=== PATIENT | female | born 1965 | race Caucasian/White ===

== ENCOUNTER 2022-03-14 16:09 | Outpatient (REF) | payer MEDICAID, SELFPAY ==
[2022-03-14 18:35] LABS: HCT 43.3 % (36.0-46.0); HGB 14.3 g/dL (11.2-15.7); MCH 31.8 pg (27.0-33.0); MCV 96 fL (80-95); MPV 10.5 fL (8.0-11.0); Platelet Count 210 10^3/uL (130-400); RBC 4.49 10^6/uL (3.93-5.22); RDW 12.1 % (11.7-14.6); WBC 7.22 10^3/uL (4.4-10.8)
[2022-03-14 19:59] LABS: ALT 43 U/L (14-59); AST 22 U/L (15-37); Albumin 3.8 g/dL (3.4-5.0); Alkaline Phosphatase 93 U/L (46-116); Anion Gap 11.8 mmol/L (3-11); BUN 9 mg/dL (7-18); Bilirubin, Total 0.4 mg/dL (0.2-1.0); CO2 25.2 mmol/L (21.0-32.0); CREATININE 0.7 mg/dL (0.55-1.02); Calcium 8.7 mg/dL (8.5-10.1); Calculated LDL 143 mg/dL (<100); Chloride 104 mmol/L (98-107); Cholesterol 241 mg/dL (<200); Glucose 92 mg/dL (74-106); HDL Cholesterol 84 mg/dL (40-60); Potassium 3.8 mmol/L (3.5-5.1); Sodium 141 mmol/L (136-145); TSH (W/Ref FT4) 1.04 uIU/mL (0.36-3.74); Triglyceride 70 mg/dL (<150); Vitamin B12 490 pg/mL (193-986)
== END 2022-03-14 16:10 | disposition home or self-care (01) ==
LOC: NCHCN 16:09
PROVIDERS: Visit Provider Nurse Practitioner Family
DX: R20.2 Paresthesia of skin (principal); R03.0 Elevated blood-pressure reading, without diagnosis of hypertension; R79.89 Other specified abnormal findings of blood chemistry; E55.9 Vitamin D deficiency, unspecified; Z00.00 Encounter for general adult medical examination without abnormal findings
CPT/HCPCS: 80053; 80061; 82306; 85027; 82607; 83735; 84443

== ENCOUNTER → 2022-08-25 01:33 | Outpatient (CLI) | payer MEDICAID, SELFPAY ==
--- NOTE | 2022-08-25 09:45 | DI.MRI_ITS ---
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 COMPARISON: No exams were available for comparison FINDINGS: BONES: Vertebral body heights are maintained. Alignment is normal. Bone marrow signal intensity is wi thin normal limits. CERVICAL CORD: Craniovertebral junction is unremarkable. The cervical cord is normal size and signal intensity. SOFT TISSUES: Unremarkable. C2-3: No disc herniation or bulge is identified. No evidence of neural foraminal narrowing. No signi ficant central canal stenosis C3-4: No disc herniation or bulge is identified. No evidence of neural foraminal narrowing. No signif icant central canal stenosis C4-5: No disc herniation or bulge is identified. No evidence of neural foraminal narrowing. No signif icant central canal stenosis C5-6: Mild loss of disc height. Endplate osteophytes are seen projecting eccentric toward the left, causing neural foraminal narrowing. No significant central canal stenosis C6-7: Mild broad-based disc bulging eccentric toward the right. No evidence of neural foraminal narr owing. Mild effacement of the anterior CSF space. No significant central canal stenosis C7-T1: No disc herniation or bulge is identified. No evidence of neural foraminal narrowing. No signi ficant central canal stenosis IMPRESSION: Left neural foraminal narrowing at C5-6 secondary to left-sided disc osteophytes. Mild disc bulging eccentric toward the right at C 6 7. DATA REPOSITORY:
== END ==
PROVIDERS: Visit Provider Nurse Practitioner Family
DX: M50.222 Other cervical disc displacement at C5-C6 level (principal); M50.223 Other cervical disc displacement at C6-C7 level
CPT/HCPCS: 72141

== ENCOUNTER 2022-12-08 11:43 | Outpatient (REF) | payer MEDICAID, SELFPAY ==
[2022-12-08 16:18] LABS: ESR 26 mm/hr (0-30)
[2022-12-08 16:22] LABS: Abs Immature Grans 0.02 10^3/uL (0.0-0.06); Absolute Basophil Count 0.02 10^3/uL (0.0-0.2); Absolute Eosinophil Count 0.08 10^3/uL (0.0-0.7); Absolute Lymphocyte Count 1.66 10^3/uL (1.2-3.4); Absolute Monocyte Count 0.43 10^3/uL (0.1-0.8); Absolute Neutrophil Count 3.52 10^3/uL (1.2-6.7); Basophils % 0.3; Eosinophils % 1.4; HCT 43.7 % (36.0-46.0); HGB 14.6 g/dL (11.2-15.7); Immature Grans % 0.3; MCH 32.3 pg (27.0-33.0); MCHC 33.4 % (32.0-36.0); MCV 97 fL (80-95); MPV 10.7 fL (8.0-11.0); Monocytes % 7.5; Neutrophils % 61.5; Platelet Count 190 10^3/uL (130-400); RBC 4.52 10^6/uL (3.93-5.22); RDW 11.8 % (11.7-14.6); RDW-SD 42.2 fL; WBC 5.73 10^3/uL (4.4-10.8)
[2022-12-08 17:01] LABS: ALT 32 U/L (14-59); AST 17 U/L (15-37); Albumin 3.6 g/dL (3.4-5.0); Alkaline Phosphatase 84 U/L (46-116); Anion Gap 8.3 mmol/L (3-11); BUN 22 mg/dL (7-18); Bilirubin, Total 0.3 mg/dL (0.2-1.0); CO2 26.7 mmol/L (21.0-32.0); CREATININE 0.7 mg/dL (0.55-1.02); Chloride 104 mmol/L (98-107); Estimated GFR 101.44 (mL/min/1.73m2); Glucose 100 mg/dL (74-106); Potassium 4.4 mmol/L (3.5-5.1); Sodium 139 mmol/L (136-145); TSH (W/Ref FT4) 1.05 uIU/mL (0.36-3.74); Total Protein 7.1 g/dL (6.4-8.2); Vitamin B12 405 pg/mL (193-986)
[2022-12-08 17:16] LABS: Creatine Kinase 48 U/L (26-192)
[2022-12-08 17:55] LABS: Vitamin D 25 Total 12.1 ng/mL (30-100)
[2022-12-09 17:55] LABS: Rheumatoid Factor <8.6 IU/mL (<12.0)
[2022-12-10 09:25] LABS: Cyclic Citrullinated Peptide <2.5 U/mL (<5.0)
== END 2022-12-08 11:44 | disposition home or self-care (01) ==
LOC: NCHCN 11:43
PROVIDERS: PCP Nurse Practitioner Family; Visit Provider Family Medicine
DX: M25.561 Pain in right knee (principal); M25.562 Pain in left knee; R53.1 Weakness; M62.81 Muscle weakness (generalized); M79.18 Myalgia, other site; E55.9 Vitamin D deficiency, unspecified; R20.2 Paresthesia of skin
CPT/HCPCS: 80053; 82306; 82550; 85652; 86200; 82607; 84443; 85025; 86140; 86431

== ENCOUNTER 2023-02-03 00:40 | Outpatient (CLI) | payer MEDICAID, SELFPAY ==
--- NOTE | 2023-02-03 | DI.RAD_ITS ---
Exam(s) XR KNEE LT 3V AP,LAT,NICHELLE EXAM: XR KNEE LT 3V AP,LAT,NICHELLE CLINICAL HISTORY: LT KNEE PAIN, M25.569. TECHNIQUE: 2D digital imaging was performed of the left knee. Three images were obtained. AP, late ral and PA tunnel views were obtained. COMPARISON: No priors for comparison. FINDINGS: BONES: No acute fracture is present. No bony destructive lesion is seen. Enthesophytes are seen at t he anterior patella. JOINTS: Moderately severe degenerative changes are seen in the left knee characterized by joint space narrowing and periarticular spurring. The findings are most marked at the patellofemoral joint. No joint effusion is seen. SOFT TISSUE: Normal. IMPRESSION: Moderately severe osteoarthritis of the left knee. DATA REPOSITORY: RADIATION DOSE DELIVERED:
--- NOTE | 2023-02-03 | DI.RAD_ITS ---
Exam(s) XR KNEE RT 3V AP,LAT,NICHELLE EXAM: XR KNEE RT 3V AP,LAT,NICHELLE CLINICAL HISTORY: RT KNEE PAIN, M25.569. TECHNIQUE: 2D digital imaging was performed of the right knee. Three views obtained. AP, lateral an d PA tunnel views were obtained. COMPARISON: No exams were available for comparison FINDINGS: BONES: No acute fracture is present. No bony destructive lesion is seen. JOINTS: Moderate degenerative changes are seen in the right knee involving all 3 joint compartments c an characterized by joint space narrowing and periarticular spurring. There is a small joint effusio n. SOFT TISSUE: Normal. IMPRESSION: Moderate osteoarthritis of the knee. DATA REPOSITORY: RADIATION DOSE DELIVERED:
== END 2023-02-03 01:00 ==
PROVIDERS: PCP Nurse Practitioner Family; Visit Provider Family Medicine
DX: R60.0 Localized edema (principal); R53.1 Weakness
CPT/HCPCS: 73562

== ENCOUNTER 2023-03-26 15:44 | Outpatient (REF) | payer MEDICAID, SELFPAY ==
--- OUTSIDE RECORDS SUMMARY | 2023-03-26 15:46 | XMS_ITS | Continuity of Care Document ---
Author Name Unknown Organization [facility] Ambulatory Clinics Address [address] [place] [address] Care Team Providers Care Component Assembler Supervisor Name Role Phone OLLIE REBOLLAR Primary Care Physician [phone] Encounter [facility] NBR [id number] Date(s): 02/25/23 - 02/25/23 [facility] Ambulatory Clinics [address], [place] [address] Encounter Diagnosis Bilateral leg weakness(Discharge Diagnosis) - 02/25/23 Primary osteoarthritis of knees, bilateral(Discharge Diagnosis) - 02/25/23 Discharge Disposition: Home or Self Care Attending Physician: Shilpi Dominguez APRN Allergies, Adverse Reactions, Alerts No Known Medication Allergies Assessment and Plan Future Scheduled Tests Radiology* XR Knee Complete 4+ Views Left 01/30/23 Functional Status 02/25/23 Other exposure to Infectious Disease Non e Medications buPROPion 150 mg/12 hours (SR) oral tablet, extended release 150 mg = 1 tab, Oral, BID, # 60 tab, 0 Refill(s) Start Date: 02/03/23 Status: Ordered ibuprofen 200 mg oral tablet 400 mg = 2 tab, Oral, every 4 hr, PRN as needed for pain, # 120 tab, 0 Refill(s) Start Date: 02/04/23 Status: Ordered Vitamin D3 2000 intl units oral capsule 50 mcg 1 cap, Oral, Daily, # 60 cap, 0 Refill(s) Start Date: 02/03/23 Status: Ordered Problem List Condition Confirmation Course Effective Dates Status H ealth Status Informant Anxiety Confirmed Active Myelopathy, cervical spine Confirmed Active Congenital genu valgus Confirmed Active Lower extremity edema Confirmed Active Elevated blood pressure reading with diagnosis of hypertension Confirmed Active Osteoarthritis of knee Confirmed Active Bilateral leg weakness Confirmed Active Venous stasis dermatitis Confirmed Active Venous insufficiency Confirmed Active Vitamin D deficiency Confirmed Active Vital Signs Most recent to oldest [Reference Range]: 1 Peripheral Pulse Rate [60-100 bpm] 78 bp m (02/25/23 12:24 PM) Blood Pressure [90-140/60-90 mmHg] 158/8 2mmHg *HI* (02/25/23 12:24 PM) Social History Social History Type Response Tobacco Former tobacco user Tobacco Use:. Sex Female Physician Outpatient Note * Shilpi Dominguez APRN: PERFORM Event Display: Office Clinic Note Physician Authored Date: [id number] SASHA MOLINA Y :1965 Age:57 years Sex:Female Visit Date:02/25/2023 Primary Care Physician: OLLIE REBOLLAR Chief Complaint Bilateral Knee pain ( Monovsic injections) History of Present Illness ? Sasha??is here today for Monovisc injection of bilateral knees, we are trying to treat??her knee arthritis conservatively.?? She has vascular issue as well??as??spinal fusion,??trying to??treat the knee osteoarthritis of her knees to see if she gets improvement??in overall movement and abilityto move about.?? She has never had viscosupplementation in the past, we were able to get approval she is here today to be considered for that. ?? From last visit on 02/04/2023: Chief complaint:??Bilateral knee pain ?? Cause: progressive over time,??just got insurance so seeking care, of note??in ??2009 [facility] spine-fusion instrumented-affected both legs-did great and was painfree. ?? Treatment: tried Mobic and was not helpful, also did physical therapy with aqua therapy also- was very painful ?? Symptoms: right worse than left, knees give way upon start up, something moving in the knee, painful weight bearing, knees want to buckle, legs feel heavy, vascular surgery at [facility] did studies and showed some slowed vascularity of the left leg- left slightly worse than right.?? Night time pain, has to take breaks during the daily chores, stairs one at a time.?? Unable to sit on floor as unable to get up.?? Right knee feels slightly worse than left ?? Sasha is really struggling with range of motion and gait, she is here today for evaluation suggestions on care going forward, she does have x-rays of both knees??on [facility] at this time.?? She is wondering what more can be done she is already finished a course of physical therapy, anti-inflammatories which??neither was very helpful. ??She is finding it difficult time walking about and moving stairs or 1 at a time. Review of Systems Constitutional:?No??fevers,?No??chills,?No??sweats Eye:?No??recent visual problems ENT:?No??ear pain,?No??nasal congestion,?No??sore throat Respiratory:?No??shortness of breath,?No??cough Cardiovascular:?No??Chest pain,?No??palpitations,?No??syncope Gastrointestinal:?Nonausea,?No??vomiting,?No??diarrhea Genitourinary:?No??hematuria Ronen/Lymph:?No??bruising tendency,?No??swollen lymph glands Endocrine:?No??excessive thirst,??No??excessive hunger Musculoskeletal:??No??back pain,??No??neck pain,??Positive for??joint pain,??No??muscle pain,??No??decreased range of motion Integumentary:?No??rash,?No??pruritus,?No??abrasions Neurologic: Alert & oriented X 4 Psychiatric:?No??anxiety,?No??depression Physical Exam Vitals & Measurements HR:??78??(Peripheral)?? BP:??158/82?? SpO2:??98%?? Pain Score:??8?? General: ??appears stated age, well dressed HEENT: no loss of hearing, normocephalic, EOMs intact Neuro: ??grossly intact, if indicated see specific neurology exam Psych: ??alert and oriented to place and time, pleasant, cooperative Dermatology: ??no gross open areas of skin-see exam of limb for specifics Lymphatics: ??no lymphedema of affected limb Gait: Antalgic Vascular: ??pulses distally of limb are 2+?? Musculoskeletal: Bilateral knees: To inspection no??redness no erythema no open areas of the skin no signs or symptoms of infection. Procedure Risks and benefit of injection are discussed with the patient,??to include infection risk, neurovascular injury, possibility of incomplete resolution of their symptoms, possibility of steroid flare and fat atrophy. ??They give verbal consent, the??bilateral anterior lateral joint space is prepped with alcohol x3, 88 mg of Monovisc??and 40 mg Kenalog sterilely injected intra-articularly??bilaterally, they tolerated the procedure very well and a sterile dressing is applied. ?? I did asked that they do not take a shower or bath this evening to try to reduce risk of infection, they may shower and bathe in 24 hours. ??Bandage to remain in place for the next 12 hours at least. Assessment/Plan 1.??Bilateral leg weakness??R29.898 2.??Primary osteoarthritis of knees, bilateral??M17.0 Sasha and I spent about??20 minutes together today with??15 of those minutes spent reviewing her x-ray findings, the fact that we are trying to treat this conservatively, we are hoping that he could she get symptomatic benefit from injections.?? Postinjection instructions are given, she will callin about??4 weeks time to let us know how she is progressing. ??If she does well we can do these injections in the future??if she fails this then likely surgical consultation with Dr. Dominguez.?? After physical exam I did feel comfortable proceeding with injection. ?? We are also going to get new??merchant views for x-ray??as??I was unable to do the injection??through the superolateral joint space as her right??patella is essentially nonmobile. Problem List/Past Medical History Ongoing Anxiety Bilateral leg weakness Congenital genu valgus Elevated blood pressure reading with diagnosis of hypertension Lower extremity edema Myelopathy, cervical spine Osteoarthritis of knee Venous insufficiency Venous stasis dermatitis Vitamin D deficiency Historical No qualifying data Medications buPROPion 150 mg/12 hours (SR) oral tablet, extended release, 150 mg= 1 tab, Oral, BID ibuprofen 200 mg oral tablet, 400 mg= 2 tab, Oral, every 4 hr, PRN Vitamin D3 2000 intl units oral capsule, 50 mcg= 1 cap, Oral, Daily Allergies No Known Medication Allergies Social History Electronic Cigarette/Vaping Electronic Cigarette Use: Never. Tobacco Former tobacco user Tobacco Use:. Health Maintenance ?Pending??(in the next year) ?Due?Adult Wellness Exam due?02/25/23?and every 1?years ?Alcohol Use Screening due?02/25/23?and every 1?years ?Breast Cancer Screening due?02/25/23?and every 2?years ?Cervical Cancer Screening due?02/25/23?Variable frequency ?Colorectal Cancer Screening due?02/25/23?Variable frequency ?Depression Screening due?02/25/23?and every 1?years ?Glaucoma Screening due?02/25/23?and every 1?years ?HIV Screening due?02/25/23?and every 1?years ?Hepatitis C Screening due?02/25/23?One-time only ?Lipid Screening due?02/25/23?and every 5?years ?Due In Future?Body Mass Index not due until?02/05/24?and every 1?years ?Satisfied??(in the past 1 year) ?Satisfied?Body Mass Index on?02/04/23.?Satisfied by Katrin Mcintyre ?? Electronically Signed on 02/25/23 12:47 PM Shilpi Dominguez APRN Patient Care team information Care Team Personnel Name: OLLIE REBOLLAR Position: No Access Member Role: Primary Care Physician Address: Address: [address] [place] [id number]
--- OUTSIDE RECORDS SUMMARY | 2023-03-26 15:46 | XMS_ITS | Continuity of Care Document ---
Author Name Unknown Organization [facility] Ambulatory Clinics Address [address] [place] [address] Care Team Providers Care Hospital Aide Name Role Phone OLLIE REBOLLAR Primary Care Physician Encounter [facility] NBR [id number] Date(s): 02/04/23 - 02/04/23 [facility] Ambulatory Clinics [address] [place], [place] [address] Encounter Diagnosis Primary osteoarthritis of knees, bilateral(Discharge Diagnosis) - 02/04/23 Discharge Disposition: Home or Self Care Attending Physician: Shilpi Waite APRN Allergies, Adverse Reactions, Alerts No Known Medication Allergies Assessment and Plan Future Scheduled Tests Radiology* XR Knee Complete 4+ Views Left 01/30/23 Functional Status 02/04/23 Other exposure to Infectious Disease Non e [...] Condition Confirmation Course Effective Dates Status H ealt Status Informant Anxiety Confirmed Active Myelopathy, cervical [...] Range]: 1 Peripheral Pulse Rate [60-100 bpm] 83 bp m (02/04/23 1:36 PM) Blood Pressure [90-140/60-90 mmHg] 168/1 00mmHg *HI* (02/04/23 1:36 PM) Weight 113.40 kg (02/04/23 1:36 PM) Weight Measured (lbs) 250.004 lb (02/04/23 1:36 PM) Height 175.26 cm (02/04/23 1:36 PM) Height/Length Measured (inches) 69 inch (02/04/23 1:36 PM) BSA Measured 2.35 m2 (02/04/23 1:36 PM) Body Mass Index 36.92 kg/m2 (02/04/23 1:36 PM) Social History Social History Type Response Tobacco Former tobacco user Tobacco Use:. Sex Female Physician Outpatient Note * Shilpi Waite APRN: PERFORM Event Display: Office Clinic Note Physician Authored Date: [id number] SASHA MOLINA :1965 Age:57 years Sex:Female Visit Date:02/04/2023 Primary Care Physician: OLLIE REBOLLAR Chief Complaint BILATERAL KNEE History of Present Illness Chief complaint:??Bilateral knee pain ?? Cause: progressive over time,??just got insurance so seeking care, of note??in ??2009 [facility] [place]ed-affected both legs-did great and was painfree. ?? Treatment: tried Mobic and was not helpful, also did physical therapy with aqua therapy also- was very painful ?? Symptoms: right worse than left, knees give way upon start up, something moving in the knee, painful weight bearing, knees want to buckle, legs feel heavy, vascular [place] [facility] [place] studies and showed some slowed vascularity [...] she does have x-rays of both knees??on [facility] at this time.?? She is wondering what [...] Endocrine:?No??excessive thirst,??No??excessive hunger Musculoskeletal:??No??back pain,??No??neck pain,??Positive for??joint pain,??Positive for??muscle pain,??Positive for??decreased range of motion Integumentary:?No??rash,?No??pruritus,?No??abrasions Neurologic: Alert & oriented X 4 Psychiatric:?No??anxiety,?No??depression Physical Exam Vitals & Measurements HR:??83??(Peripheral)?? BP:??168/100?? SpO2:??98%?? HT:??175.26??cm?? WT:??113.40??kg?? BMI:??36.92?? Pain Score:??8?? BSA:??2.35?? General: ??appears stated age, well dressed HEENT: no loss of hearing, normocephalic, EOMs intact Neuro: ??grossly intact, if indicated see specific neurology exam Psych: ??alert and oriented to place and time, pleasant, cooperative Dermatology: ??no gross open areas of skin-see exam of limb for specifics Lymphatics: ??no lymphedema of affected limb Gait: Very antalgic favoring both legs right worse than left Vascular: ??pulses distally of limb are 2+?? Musculoskeletal: Right knee: She is unable to fully extend by about 10 degrees, flexion is to about95, there is significant tenderness at the medial and lateral joint line, anterior drawers with solid endpoint, patella prehension is negative, patellar grind is positive.?? It is difficult to test ligamentous stability due to guarding. Left knee:??She is??able to extend more freely, flexion is to about 100, tenderness at the lateral joint line less so at the medial joint line patella prehension is negative, patellar grind is positive. There is obvious valgus deformity of bilateral knees. Assessment/Plan 1.??Primary osteoarthritis of knees, bilateral??M17.0 X-rays are reviewed on [facility] today??which shows??significant patellofemoral arthritis noticed??more left than right on the lateral view, for some reason there is no sunrise view,??there is lateral joint space narrowing bilaterally, valgus deformity, bony spurring of the anterior tibias and posterior. ?? Sasha??and I spent 45 minutes together today with at least 35 those minutes spent reviewing her extensive history, she does have leg heaviness, weakness, she has been seen by vascular surgery,??it does not appear that the heaviness is coming from a vascular injury??or occlusion??although she does have some drainage issues of the left lower extremity. ??Those documents are on file. ??She doeshave fairly extensive osteoarthritis of both knees, she has done physical therapy and aqua therapy with no relief, NSAIDs have given her very little relief as well.?? I suggested viscosupplementation, she is??willing to give that a try if were able to get approval.?? If she fails that then likely to issac knee arthroplasty should be considered however??if she gets no relief whatsoever of the injections I would be fairly suspicious of possibly lumbar radiculopathy as she is having leg heaviness??and discomfort. ??All of this is discussed with her at length, we will try viscosupplementation??once we are able to get approval. ??Support was given. Problem List/Past Medical History Ongoing Anxiety Bilateral [...] ?Pending??(in the next year) ?Due?Adult Wellness Exam due?02/04/23?and every 1?years ?Alcohol Use Screening due?02/04/23?and every 1?years ?Breast Cancer Screening due?02/04/23?and every 2?years ?Cervical Cancer Screening due?02/04/23?Variable frequency ?Colorectal Cancer Screening due?02/04/23?Variable frequency ?Depression Screening due?02/04/23?and every 1?years ?Glaucoma Screening due?02/04/23?and every 1?years ?HIV Screening due?02/04/23?and every 1?years ?Hepatitis C Screening due?02/04/23?One-time only ?Lipid Screening due?02/04/23?and every 5?years ?Satisfied??(in the past 1 year) ?Satisfied?Body Mass Index on?02/04/23.?Satisfied by Katrin Mcintyre ?? Electronically Signed on 02/04/23 02:26 PM Shilpi Waite APRN Reviewed by: Darek Waite, Patient Care team information Care Team Personnel Name: OLLIE REBOLLAR Position: No Access Member Role: Primary Care Physician Address: Address: [address] [place] [address] [address] [place], [place] [address]
--- OUTSIDE RECORDS SUMMARY | 2023-03-26 15:46 | XMS_ITS | Continuity of Care Document ---
Author Name Unknown Organization [facility] Ambulatory Clinics Address [address] [place] [address] Care Team Providers Care Chair Inspector Name Role Phone OLLIE REBOLLAR Primary Care Physician Encounter [facility] NBR [id number] Date(s): 01/06/23 - 01/06/23 [facility] Ambulatory Clinics [address] [place] [address]- [place] Social History Social History Type Response Sex Female Patient Care team information Care Team Personnel Name: OLLIE REBOLLAR Position: No Access Member Role: Primary Care Physician Address: Address: [address] [place] [address] [address] [place], [place] [address]
--- OUTSIDE RECORDS SUMMARY | 2023-03-26 15:46 | XMS_ITS | Continuity of Care Document ---
Author Name Unknown Organization [facility] Address [address] [place] [address] Care Team Providers Care Log Rider Name Role Phone OLLIE REBOLLAR Primary Care Physician Encounter [facility] NBR [id number] Date(s): 02/25/23 - 02/25/[address] [address]- Discharge Disposition: Home or Self Care Attending Physician: Shilpi Dominguez APRN Admitting Physician: Shilpi Dominguez APRN Allergies, Adverse Reactions, Alerts No Known Medication Allergies Assessment and Plan Future Scheduled Tests Radiology* XR Knee Complete 4+ Views Left 01/30/23 Medications buPROPion 150 mg/12 hours (SR) oral [...] Confirmed Active Vitamin D deficiency Confirmed Active Results Radiology Reports * Exam Date Time Procedure Performing Provider Status 02/25/23 1:07 PM XR Knee 1 or 2 Views Left Sherwood, Marcin cee; Auth (Verified) Notes: (XR Knee 1 or 2 Views Left) Reason For Exam: Left Knee pain XR Knee 1 or 2 Views Left EXAM DESCRIPTION: XR Knee 1 or 2 Views Left 02/25/2023 INDICATION: LEFT KNEE PAIN TECHNIQUE: [place] view of the patella, one view COMPARISON: None IMPRESSION: No acute fracture identified on this single patella sunrise view. Patellar osteophyte formation consistent with mild arthritic changes. JOB #: [id number] Final Signed by: Andrew Berg MD Signed (Electronic Signature): 02/25/2023 1:35 pm * Exam Date Time Procedure Performing Provider Status 02/25/23 1:07 PM XR Knee 1 or 2 Views Right Sherwood, Chr istina; Auth (Verified) Notes: (XR Knee 1 or 2 Views Right) Reason For Exam: Right knee pain XR Knee 1 or 2 Views Right EXAM DESCRIPTION: XR Knee 1 or 2 Views Right 02/25/2023 INDICATION: RIGHT KNEE PAIN TECHNIQUE: [place] view of the patella, one view COMPARISON: None IMPRESSION: No fracture identified on this single patella sunrise view Mild patellar osteophyte formation consistent with arthritic changes. JOB #: [id number] Final Signed by: Andrew Berg MD Signed (Electronic Signature): 02/25/2023 1:35 pm Social History Social History Type Response Tobacco Former tobacco user Tobacco Use:. Sex Female XR Knee - right 1 or 2 Views * Andrew Berg MD: VERIFY, VERIFY Event Display: Report EXAM DESCRIPTION: XR Knee 1 or 2 Views Right 02/25/2023 INDICATION: RIGHT KNEE PAIN TECHNIQUE: [place] view of the patella, one view COMPARISON: None IMPRESSION: No fracture identified on this single patella sunrise view Mild patellar osteophyte formation consistent with arthritic changes. JOB #: [id number] Final Signed by: Andrew Berg MD Signed (Electronic Signature): 02/25/2023 1:35 pm XR Knee - left 1 or 2 Views * Andrew Berg MD: VERIFY, VERIFY Event Display: Report EXAM DESCRIPTION: XR Knee 1 or 2 Views Left 02/25/2023 INDICATION: LEFT KNEE PAIN TECHNIQUE: [place] view of the patella, one view COMPARISON: None IMPRESSION: No acute fracture identified on this single patella sunrise view. Patellar osteophyte formation consistent with mild arthritic changes. JOB #: [id number] Final Signed by: Andrew Berg MD Signed (Electronic Signature): 02/25/2023 1:35 pm Patient Care team information Care Team Personnel Name: OLLIE REBOLLAR Position: No Access Member Role: Primary Care Physician Address: Address: [address] [place] [id number]
[2023-03-26 19:50] LABS: ESR 40 mm/hr (0-30)
[2023-03-26 20:57] LABS: Anion Gap 11.5 mmol/L (3-11); BUN 7 mg/dL (7-18); C-Reactive Protein 0.82 mg/dL (0.0-0.3); CO2 27.5 mmol/L (21.0-32.0); CREATININE 0.7 mg/dL (0.55-1.02); Calcium 9.1 mg/dL (8.5-10.1); Chloride 100 mmol/L (98-107); Estimated GFR 101.44 (mL/min/1.73m2); Glucose 92 mg/dL (74-106); Potassium 3.9 mmol/L (3.5-5.1); Sodium 139 mmol/L (136-145)
== END 2023-03-26 15:45 | disposition home or self-care (01) ==
LOC: NCHCN 15:44
PROVIDERS: PCP Nurse Practitioner Family; Visit Provider Nurse Practitioner Family
DX: M35.3 Polymyalgia rheumatica (principal); E55.9 Vitamin D deficiency, unspecified; G89.29 Other chronic pain
CPT/HCPCS: 80048; 82306; 85652; 83735; 86140

== ENCOUNTER 2024-02-29 18:57 | Outpatient (REF) | payer MEDICAID, SELFPAY ==
[2024-02-29 19:21] LABS: Anion Gap 10.1 mmol/L (3-11); BUN 16 mg/dL (7-18); CO2 26.9 mmol/L (21.0-32.0); CREATININE 0.8 mg/dL (0.55-1.02); Calcium 9.4 mg/dL (8.5-10.1); Chloride 105 mmol/L (98-107); Estimated GFR 85.89 (mL/min/1.73m2); Glucose 93 mg/dL (74-106); Sodium 142 mmol/L (136-145)
== END 2024-02-29 18:58 | disposition home or self-care (01) ==
LOC: NCHCN 18:57
PROVIDERS: PCP Nurse Practitioner Family; Visit Provider Nurse Practitioner Family
DX: R03.0 Elevated blood-pressure reading, without diagnosis of hypertension (principal)
CPT/HCPCS: 80048

== ENCOUNTER 2024-04-01 14:21 | Outpatient (REF) | payer MEDICAID, SELFPAY ==
[2024-04-01 14:44] LABS: Anion Gap 6.8 mmol/L (3-11); BUN 17 mg/dL (7-18); CO2 29.2 mmol/L (21.0-32.0); CREATININE 0.9 mg/dL (0.55-1.02); Calcium 9.2 mg/dL (8.5-10.1); Chloride 106 mmol/L (98-107); Estimated GFR 74.57 (mL/min/1.73m2); Glucose 102 mg/dL (74-106); Potassium 4.5 mmol/L (3.5-5.1); Sodium 142 mmol/L (136-145)
== END 2024-04-01 14:22 | disposition home or self-care (01) ==
LOC: NCHCN 14:21
PROVIDERS: PCP Nurse Practitioner Family; Visit Provider Nurse Practitioner Family
DX: I10 Essential (primary) hypertension (principal)
CPT/HCPCS: 80048

== ENCOUNTER 2025-04-03 18:30 | Outpatient (REF) | payer MEDICARE, MEDICAID, SELFPAY ==
[2025-04-03 17:11] LABS: ALT 37 U/L (14-59); AST 17 U/L (15-37); Albumin 3.6 g/dL (3.4-5.0); Alkaline Phosphatase 83 U/L (46-116); BUN 18 mg/dL (7-18); Bilirubin, Total 0.4 mg/dL (0.2-1.0); CREATININE 0.9 mg/dL (0.55-1.02); Calcium 9.1 mg/dL (8.5-10.1); Calculated LDL 118 mg/dL (<100); Chloride 104 mmol/L (98-107); Cholesterol 220 mg/dL (<200); Glucose 100 mg/dL (74-106); HDL Cholesterol 87 mg/dL (>or=50); Potassium 4.2 mmol/L (3.5-5.1); Sodium 139 mmol/L (136-145); Total Protein 7.1 g/dL (6.4-8.2); Triglyceride 75 mg/dL (<150)
[2025-04-03 17:25] LABS: Hemoglobin A1C 5.3 % (<5.7)
== END 2025-04-03 18:31 | disposition home or self-care (01) ==
LOC: NCHCN 18:30
PROVIDERS: PCP Nurse Practitioner Family; Visit Provider Nurse Practitioner Family
DX: Z00.00 Encounter for general adult medical examination without abnormal findings (principal); I10 Essential (primary) hypertension
CPT/HCPCS: 80053; 80061; 83036